=== PATIENT | female | born 1965 | race Caucasian/White ===

== ENCOUNTER 2016-10-18 08:25 | Emergency (ER) | payer MEDICAID ==
[~2016-10-18] VITALS: Ht 157.5 cm; Wt 58.7 kg
[~2016-10-18 08:25] MED LIST: INSU100V12 SQ; LEVO500T63 PO; METF10002 PO
[2016-10-18 08:27] VITALS: Ht 157.5 cm; Wt 58.7 kg
--- OUTSIDE RECORDS SUMMARY | 2016-10-18 08:29 | XMS REPORT ---
Author Author Chantel Graham [facility] eClinicalWorks Address Unknown Phone Unavailable Care Team Providers Care Account Information Clerk Name Role Phone Chantel Graham Unavailable Allergies No Known Allergies Problems Problem Type Condition ICD-9 Code Onset Dates Condition Status Problem Diabetes Mellitus Type 2, not stated as uncontrolled 250.00 Active Problem Diabetes mellitus without mention of complication, type II or unspecified type, uncontrolled 250.02 Active Medications Medication Code System Code Instructions Start Date End Date Status Dosage Lovastatin [facility] [address]-77 20 MG Orally Once a day Sep 11, 2014 1 tablet with a meal Results No Known Results Summary Purpose eClinicalWorks Submission
--- OUTSIDE RECORDS SUMMARY | 2016-10-18 08:29 | XMS REPORT | Continuity of Care Document ---
Author Author [facility] Organization [facility] Address Unknown Phone Unavailable Support Name Relationship Address Phone NOVEMBER, ANGEL Newell DO Caregiver [address] [facility] [place] [address] Unavailable HAYDEN PIÑA DO Caregiver [address] [place] [address] Unavailable ANDRESKAT CHRISTENSEN Next Of Kin Unknown [phone] Insurance Providers Guarantor Nai Ibanez Address [address] [place] [address] Email DENIED/NO TO PT PORT Payer Self Pay Subscriber's Name AndresNai christensen Relationship 18 Self Advance Directives Directive Response Recorded Date/Time Advanced Directives Type None 02/04/16 8:30pm Chief Complaint and Reason for Visit Chief Complaint Flank Pain Reason for Visit Bilateral flank pain Problems Past Problems Medical Problem Onset Date Bilateral flank pain Unknown Medications Current Home Medications Medication Dose Units Route Directions Days Qty Instructions Start Date Insulin Detemir (Levemir) 100 Unit/Ml Inj 20 Unit Sub-Q Bedtime 02/04/16 Levofloxacin (Levaquin) Unknown Strength Tablet 1 Tab Oral Daily 02/04/16 Metformin Hcl 1,000 Mg Tablet 1,000 Mg Oral Twice A Day 02/04/16 Social History Social History Problem Response Recorded Date/Time Onset Date Status Hx Alcohol Use No 02/04/2016 9:27pm Not Applicable Not Applicable Query Response Start Date Stop Date Smoking Status Never smoker Hospital Discharge Instructions No hospital discharge instructions. Plan of Care Discharge Date 02/04/16 11:11pm Disposition 01 DISCHARGED HOME, SELF-CARE Condition at Discharge Improved Instructions/Education Provided DI for Flank Pain Prescriptions See Medication Section Referrals HAYDEN PIÑA DO Address: [address] [place] [phone] Additional Instructions/Education Your labs were normal except for elevated blood sugar 324 and 3+ sugar in your urine. Renal CT had not acute findings. Complete course of Levaquin. Stay well hydrated, drink 2 quarts of water daily. May take Aleve as needed for pain. Follow with Dr. Piña as needed. Avoid any activity that makes pain worse. Care Plan and Goals Physician Care Plan Problem: Bilateral flank pain Goal: Follow up with primary care provider Instructions: Take medications and follow care plan as discussed/written Functional Status No functional status results. Allergies, Adverse Reactions, Alerts No known allergies. Immunizations Query Response on File Recorded Date/Time Influenza Vaccine Hx NONE 02/04/16 9:27pm Vital Signs Acute Vital Signs Vital Response Date/Time Temperature (Fahrenheit) 98.7 deg F (96.8 - 99.1) 02/04/2016 8:30pm Temperature (Calculated Celsius) 37.69453 degrees C (36.0 - 37.3) 02/04/2016 8:30pm Pulse Rate (adult) 79 bpm (60 - 100) 02/04/2016 11:11pm Respiratory Rate 18 breaths/min (10 - 20) 02/04/2016 11:11pm O2 Sat by Pulse Oximetry 97 % (90 - 100) 02/04/2016 11:11pm Blood Pressure 142/67 mm Hg 02/04/2016 11:11pm Height (Feet) 5 feet 02/04/2016 8:30pm Height (Inches) 0 inches 02/04/2016 8:30pm Weight (Kilograms) 62.200 kg 02/04/2016 8:30pm Body Mass Index (BMI) 26.0 02/04/2016 8:30pm Results Laboratory Results Test Name Result Units Flags Reference Collection Date/Time Result Date/ Time Comments White Blood Count 7.9 T/MM3 4.5-11.0 02/04/2016 9:26pm 02/04/2016 9: 31pm Red Blood Count 5.20 M/MM3 4.00-5.20 02/04/2016 9:pm 02/04/2016 9: 31pm Hemoglobin 13.8 GM/DL 12-16 02/04/2016 9:pm 02/04/2016 9:31pm Hematocrit 42.1 % 36-46 02/04/2016 9:pm 02/04/2016 9:31pm Mean Corpuscular Volume 81.0 UM3 80-100 02/04/2016 9:pm 02/04/2016 9: 31pm Mean Corpuscular Hemoglobin 26.5 UUG 26-34 02/04/2016 9:2015 9:31pm Mean Corpuscular Hemoglobin Concent 32.8 GM/DL 31-37 02/04/2016 9:02/04/2016 9:31pm RDW Standard Deviation 41.4 FL 36.9-50.2 02/04/2016 9:02/04/2016 9 :31pm Platelet Count 191 T/MM3 130-400 02/04/2016 9:02/04/2016 9:31pm Mean Platelet Volume 10.7 UM3 9.4-12.4 02/04/2016 9:02/04/2016 9: 31pm Neutrophils (%) (Auto) 56.1 % 33-66 02/04/2016 9:02/04/2016 9: 31pm Lymphocytes (%) (Auto) 36.9 % 23-45 02/04/2016 9:02/04/2016 9: 31pm Monocytes (%) (Auto) 4.8 % 0-9.0 02/04/2016 9:02/04/2016 9:31pm Eosinophils (%) (Auto) 1.6 % 0-4 02/04/2016 9:02/04/2016 9:31pm Basophils (%) (Auto) 0.5 % 0-2 02/04/2016 9:02/04/2016 9:31pm Immature Granulocyte % (Auto) 0.1 % 0.0-0.5 02/04/2016 9:2015 9:31pm Absolute Neutrophils (auto) 4.4 T/MM3 1.8-7.7 02/04/2016 9:2015 9:31pm Absolute Lymphocytes (auto) 2.9 T/MM3 1-4.8 02/04/2016 9:2015 9:31pm Absolute Monocytes (auto) 0.4 T/MM3 0-0.8 02/04/2016 9:02/04/2016 9:31pm Absolute Eosinophils (auto) 0.1 T/MM3 0-0.5 02/04/2016 9:2015 9:31pm Absolute Basophils (auto) 0.0 T/MM3 0-0.2 02/04/2016 9:02/04/2016 9:31pm Absolute Immature Granulocyte (auto 0.01 T/MM3 0.00-0.03 02/04/2016 9: 02/04/2016 9:31pm Icterus Index < 2 0-7 02/04/2016 9:02/04/2016 9:40pm Chemistry Specimen Hemolysis < 15 0-25 02/04/2016 9:02/04/2016 9 :40pm 0-25: Specimen Exhibited No Hemolysis. Turbidity < 20 0-20 02/04/2016 9:02/04/2016 9:40pm Sodium Level 141 MEQ/L 134-144 02/04/2016 9:02/04/2016 9:40pm Potassium Level 4.0 MEQ/L 3.6-5 02/04/2016 9:02/04/2016 9:40pm Chloride Level 99 MEQ/L 98-107 02/04/2016 9:02/04/2016 9:40pm Carbon Dioxide Level 27 MEQ/L 22-30 02/04/2016 9:02/04/2016 9: 40pm Anion Gap 15 MEQ/L 5-15 02/04/2016 9:02/04/2016 9:40pm Blood Urea Nitrogen 19.0 MG/DL H 7-17 02/04/2016 9:02/04/2016 9: 40pm Creatinine 0.5 MG/DL L 0.7-1.2 02/04/2016 9:02/04/2016 9:40pm BUN/Creatinine Ratio 38 RATIO H 6-02/04/2016 9:02/04/2016 9: 40pm Glomerular Filtration Rate Calc 130 02/04/2016 9:02/04/2016 9: 40pm Glucose Level 324 MG/DL H 65-110 02/04/2016 9:02/04/2016 9:40pm Calculated Osmolality 286 MOSM/KG H 261-280 02/04/2016 9:2015 9:40pm Calcium Level 9.5 MG/DL 8.4-10.2 02/04/2016 9:02/04/2016 9:40pm Total Bilirubin 0.70 MG/DL 0.20-1.30 02/04/2016 9:02/04/2016 9: 40pm Alkaline Phosphatase 88 U/L 38-126 02/04/2016 9:pm 02/04/2016 9:40pm Total Protein 7.6 G/DL 6.3-8.2 02/04/2016 9:26pm 02/04/2016 9:40pm Albumin 4.0 G/DL 3.5-5.0 02/04/2016 9:26pm 02/04/2016 9:40pm Globulin 3.6 G/DL 2.4-3.6 02/04/2016 9:pm 02/04/2016 9:40pm Albumin/Globulin Ratio 1.1 RATIO 1.1-2.2 02/04/2016 9:26pm 02/04/2016 9 :40pm Aspartate Amino Transf (AST/SGOT) 21 U/L 14-36 02/04/2016 9:26pm 2015 9:40pm Alanine Aminotransferase (ALT/SGPT) 11 U/L 9-52 02/04/2016 9:26pm 02/03 9:40pm Urine Collection Type VOIDED-NOT CC-MIDSTR 02/04/2016 9:00pm 2015 9:04pm Urine Color YELLOW YELLOW 02/04/2016 9:00pm 02/04/2016 9:04pm Urine Turbidity CLEAR CLEAR 02/04/2016 9:00pm 02/04/2016 9:04pm Urine Specific [place] 1.020 1.015-1.025 02/04/2016 9:00pm 2015 9:04pm Urine pH 5.0 5.0-8.0 02/04/2016 9:00pm 02/04/2016 9:04pm Urine Leukocyte Esterase NEGATIVE NEGATIVE 02/04/2016 9:00pm 2015 9:04pm Urine Nitrite NEGATIVE NEGATIVE 02/04/2016 9:00pm 02/04/2016 9:04pm Urine Protein NEGATIVE NEGATIVE 02/04/2016 9:00pm 02/04/2016 9:04pm Urine Glucose (UA) 3+ A NEGATIVE 02/04/2016 9:00pm 02/04/2016 9:04pm Urine Ketones NEGATIVE NEGATIVE 02/04/2016 9:00pm 02/04/2016 9:04pm Urine Urobilinogen 0.2 EU/DL NORMAL 02/04/2016 9:00pm 02/04/2016 9: 04pm Urine Bilirubin NEGATIVE NEGATIVE 02/04/2016 9:00pm 02/04/2016 9: 04pm Urine Blood NEGATIVE NEGATIVE 02/04/2016 9:00pm 02/04/2016 9:04pm Urinalysis Comment MICROSCOPIC NOT IND. 02/04/2016 9:00pm 2015 9:04pm Procedures No known history of procedures. Encounters Encounter Location Arrival/Admit Date Discharge/Depart Date Attending Provider Departed Emergency Room [facility] 02/04/16 8:22pm 02/04/16 11: 11pm ANGEL ROJAS DO Recent Diagnosis
--- OUTSIDE RECORDS SUMMARY | 2016-10-18 08:29 | XMS REPORT ---
Author Author Dylon Donato Organization eClinicalWorks Address Unknown Phone Unavailable Care Team Providers Care Blueprinting And Photocopy Supervisor Name Role Phone Dylon Donato CP Unavailable Allergies No Known Allergies Problems Problem Type Condition Code Onset Dates Condition Status Problem Hyperlipidemia, unspecified E78.5 Active Problem Essential (primary) hypertension I10 Active Problem Type 2 diabetes mellitus with hyperglycemia E11.65 Active Problem Diabetes Mellitus Type 2, not stated as uncontrolled 250.00 Active Problem Type 2 diabetes mellitus with diabetic neuropathy, unspecified E11.40 Active Problem Diabetes mellitus without mention of complication, type II or unspecified type, uncontrolled 250.02 Active Medications No Known Medications Results No Known Results Summary Purpose eClinicalWorks Submission
--- OUTSIDE RECORDS SUMMARY | 2016-10-18 08:29 | XMS REPORT ---
Author Author Chantel Graham [facility] eClinicalWorks Address Unknown Phone Unavailable Care Team Providers Care Garage Door Service Technician Name Role Phone Chantel Graham Unavailable Allergies No Known Allergies Problems Problem Type Condition Code Onset Dates Condition Status Problem Diabetes Mellitus Type 2, not stated as uncontrolled 250.00 Active Problem Diabetes mellitus without mention of complication, type II or unspecified type, uncontrolled 250.02 Active Medications No Known Medications Results No Known Results Summary Purpose eClinicalWorks Submission
--- OUTSIDE RECORDS SUMMARY | 2016-10-18 08:29 | XMS REPORT ---
Author Author Dylon Donato Organization eClinicalWorks Address Unknown Phone Unavailable Care Team Providers Care Print Binding And Finishing Worker Name Role Phone Dylon Donato CP Unavailable Allergies No Known Allergies Problems Problem Type Condition Code Onset Dates Condition Status Problem Diabetes Mellitus Type 2, not stated as uncontrolled 250.00 Active Assessment Type 2 diabetes mellitus with hyperglycemia E11.65 Active Problem Diabetes mellitus without mention of complication, type II or unspecified type, uncontrolled 250.02 Active Assessment Benign essential hypertension I10 Active Assessment Hyperlipidemia, unspecified E78.5 Active Medications Medication Code System Code Instructions Start Date End Date Status Dosage Lovastatin [facility] [address]-48 20 MG Orally Once a day Sep 11, 2014 1 tablet with a meal Levemir FlexTouch [facility] [address]-06 100 UNIT/ML Subcutaneous at HS Mar 08, 2014 30 units Aspir-81 [facility] [address]-17 81 MG Orally Once a day 1 tablet Humalog KwikPen [facility] [address]-96 100 UNIT/ML Subcutaneous tid with meals Mar 08, 2014 12 units Procedures Procedure Coding System Code Date COMPLETE CBC W/AUTO DIFF WBC CPT-4 00925 Apr 13, 2016 HEMOGLOBIN A1C, IN HOUSE CPT-4 12447 Apr 13, 2016 LIPID PANEL CPT-4 40764 Apr 13, 2016 IH MicroAlb/Creat Ratio, Urine CPT-4 21415 Apr 13, 2016 COMPREHENSIVE METABOLIC PANEL CPT-4 14372 Apr 13, 2016 IH MicroAlb/Creat Ratio, Urine CPT-4 78043 Apr 13, 2016 Results Name Result Date Reference Range Unit Abnormality Flag In House HB A1c ----Hemoglobin A1c 11.3 20160413 In House Microalb/Creat Ratio, Urine ----Microalbum.,U,Random 32.6 [id number] ----Microalb/Creat Ratio 77.3 [id number] ----Creatinine, Urine 42.2 [id number] Summary Purpose eClinicalWorks Submission
--- OUTSIDE RECORDS SUMMARY | 2016-10-18 08:29 | XMS REPORT ---
Author Author Chantel Graham [facility] eClinicalWorks Address Unknown Phone Unavailable Care Team Providers Care Crime Victim Specialist Name Role Phone Chantel Graham Unavailable Allergies No Known Allergies Problems Problem Type Condition ICD-9 Code Onset Dates Condition Status Problem Diabetes Mellitus Type 2, not stated as uncontrolled 250.00 Active Assessment Diabetes mellitus without mention of complication, type II or unspecified type, uncontrolled 250.02 Active Problem Diabetes mellitus without mention of complication, type II or unspecified type, uncontrolled 250.02 Active Assessment Screening for lipoid disorders V77.91 Active Medications Medication Code System Code Instructions Start Date End Date Status Dosage Aspir-81 [facility] [address]-65 81 MG Orally Once a day 1 tablet Diflucan [facility] [address]-69 150 MG Orally x1 today and repeat wednesday2013 1 tablet Levemir FlexTouch [facility] [address]-40 100 UNIT/ML Subcutaneous at HS Mar 08, 2014 20 units Humalog KwikPen [facility] [address]-18 100 UNIT/ML Subcutaneous tid with meals Mar 08, 2014 7 units Procedures Procedure Coding System Code Date LIPID PANEL CPT-4 94794 Aug 30, 2014 URINALYSIS, IN HOUSE CPT-4 20388 Aug 30, 2014 HEMOGLOBIN A1C, IN HOUSE CPT-4 71053 Aug 30, 2014 Vital Signs Date/Time: Mar 19, 2014 Height 58.75 inches Weight 150.8 lbs Temperature 97.5 F Blood Pressure Diastolic 64 mm Hg Blood Pressure Systolic 118 mm Hg Cardiac Monitoring Heart Rate 88 Beats per Minute BMI 30.71 Index Respiratory Rate 16 per Minute Results No Known Results Summary Purpose eClinicalWorks Submission
--- OUTSIDE RECORDS SUMMARY | 2016-10-18 08:30 | XMS REPORT ---
Author Author Dylon Donato Organization eClinicalWorks Address Unknown Phone Unavailable Care Team Providers Care Surgery Nurse Name Role Phone Dylon Donato CP Unavailable Allergies, Adverse Reactions, Alerts Substance Reaction Event Type N.K.D.A. Info Not Available Non Drug Allergy Problems Problem Type Condition Code Onset Dates Condition Status Assessment Low back pain M54.5 Active Assessment Hyperlipidemia, unspecified E78.5 Active Assessment Essential (primary) hypertension I10 Active Problem Hyperlipidemia, unspecified E78.5 Active Problem Essential (primary) hypertension I10 Active Problem Type 2 diabetes mellitus with hyperglycemia E11.65 Active Problem Diabetes Mellitus Type 2, not stated as uncontrolled 250.00 Active Assessment Type 2 diabetes mellitus with hyperglycemia E11.65 Active Problem Type 2 diabetes mellitus with diabetic neuropathy, unspecified E11.40 Active Problem Diabetes mellitus without mention of complication, type II or unspecified type, uncontrolled 250.02 Active Assessment Proteinuria, unspecified R80.9 Active Assessment Type 2 diabetes mellitus with diabetic neuropathy, unspecified E11.40 Active Assessment Pain in right leg M79.604 Active Medications Medication Code System Code Instructions Start Date End Date Status Dosage pravastatin [facility] [address]-42 40 mg oral at bedtime Apr 22, 2016 one tablet Aspir-81 [facility] [address]-20 81 MG Orally Once a day 1 tablet Januvia [facility] [address]-39 100 MG Orally Once a day Apr 22, 2016 1 tablet Lisinopril [facility] [address]-72 2.5 MG Orally Once a day Apr 22, 2016 1 tablet Levemir FlexTouch [facility] [address]-25 100 UNIT/ML Subcutaneous at HS Mar 08, 2014 20 units Triamcinolone Acetonide [facility] [address]-54 0.5 % Externally Twice a day 1 application to affected area Metformin HCl [facility] [address]-70 1000 MG Orally Twice a day 1 tablet with meals Gabapentin [facility] [address]-58 100 MG Orally every 12 hours Sept 28, 2016 every 12 hours Procedures Procedure Coding System Code Date OFFICE VISIT, EST-LOW COMPLEXITY (15 MIN.) CPT-4 12309 Apr 22, 2016 Vital Signs Date/Time: Apr 22, 2016 Temperature 98.4 F Height 58.75 in Weight 130.5 lbs Blood Pressure Diastolic 82 mm Hg Blood Pressure Systolic 118 mm Hg Cardiac Monitoring Heart Rate 100 /min BMI 26.58 Index Oximetry 98 % Respiratory Rate 16 /min Results No Known Results Summary Purpose eClinicalWorks Submission
--- OUTSIDE RECORDS SUMMARY | 2016-10-18 08:30 | XMS REPORT ---
Author Dylon Smith Organization eClinicalWorks Address Unknown Phone Unavailable Care Team Providers Care Cashier Name Role Phone Dylon Donato CP Unavailable Allergies, Adverse Reactions, Alerts Substance Reaction Event Type N.K.D.A. Info Not Available Non Drug Allergy Problems Problem Type Condition Code Onset Dates Condition Status Assessment Lumbago with sciatica, right side M54.41 Active Problem Diabetes Mellitus Type 2, not stated as uncontrolled 250.00 Active Assessment Lumbago with sciatica, left side M54.42 Active Problem Lumbago with sciatica, right side M54.41 Active Problem Type 2 diabetes mellitus with hyperglycemia E11.65 Active Problem Lumbago with sciatica, left side M54.42 Active Problem Type 2 diabetes mellitus with diabetic neuropathy, unspecified E11.40 Active Problem Diabetes mellitus without mention of complication, type II or unspecified type, uncontrolled 250.02 Active Problem Hyperlipidemia, unspecified E78.5 Active Problem Essential (primary) hypertension I10 Active Assessment Myalgia M79.1 Active Assessment Iron deficiency E61.1 Active Assessment Type 2 diabetes mellitus with hyperglycemia E11.65 Active Medications Medication Code System Code Instructions Start Date End Date Status Dosage pravastatin [facility] [address]-19 40 mg oral at bedtime Apr 22, 2016 one tablet Lisinopril [facility] [address]-39 2.5 MG Orally Once a day Apr 22, 2016 1 tablet Gabapentin [facility] [address]-51 100 MG Orally every 12 hours Apr 22, 2016 every 12 hours Mobic [facility] [address]-41 7.5 MG Orally Once a day May 13, 2016 Aug 11, 2016 1 tablet Ferrous Sulfate [facility] [address]-90 325 (65 Fe) MG Orally every 12 hours with meals May 13, 2016 1 tablet Vitamin C [facility] [address]-61 500 MG Orally every 12 hours May 13, 2016 1 tablet Januvia [facility] [address]-35 100 MG Orally Once a day Apr 22, 2016 1 tablet Levemir FlexTouch [facility] [address]-55 100 UNIT/ML Subcutaneous at HS Mar 08, 2014 20 units Metformin HCl [facility] [address]-66 1000 MG Orally Twice a day 1 tablet with meals Triamcinolone Acetonide [facility] [address]-52 0.5 % Externally Twice a day 1 application to affected area Aspir-81 [facility] [address]-92 81 MG Orally Once a day 1 tablet Colace [facility] [address]-49 100 MG Orally Once a day May 13, 2016 Aug 11, 2016 1 capsule as needed for constipation Procedures Procedure Coding System Code Date OFFICE VISIT, EST-LOW COMPLEXITY (15 MIN.) CPT-4 49500 May 13, 2016 Vital Signs Date/Time: May 13, 2016 Temperature 97.9 F Height 58.75 in Weight 130.5 lbs Blood Pressure Diastolic 82 mm Hg Blood Pressure Systolic 120 mm Hg Cardiac Monitoring Heart Rate 100 /min BMI 26.58 Index Oximetry 97 % Respiratory Rate 16 /min Results No Known Results Summary Purpose eClinicalWorks Submission
--- OUTSIDE RECORDS SUMMARY | 2016-10-18 08:30 | XMS REPORT ---
Author Author Chantel Graham [facility] eClinicalWorks Address Unknown Phone Unavailable Care Team Providers Care Assembler Piano Name Role Phone Chantel Graham Unavailable Allergies [...] Instructions Start Date End Date Status Dosage Januvia [facility] [address]-43 100 MG Orally Once a day Apr 22, 2016 1 tablet Levemir FlexTouch [facility] [address]-82 100 UNIT/ML Subcutaneous at Mar 08, 2014 20 units Results No Known Results Summary Purpose eClinicalWorks Submission
--- OUTSIDE RECORDS SUMMARY | 2016-10-18 08:30 | XMS REPORT ---
Author Author Dylon Donato Organization eClinicalWorks Address Unknown Phone Unavailable Care Team Providers Care Production Assistant Name Role Phone Dylon Donato CP Unavailable Allergies No Known Allergies Problems Problem Type Condition Code Onset Dates Condition Status Problem Diabetes Mellitus Type 2, not stated as uncontrolled 250.00 Active Problem Lumbago with sciatica, right side M54.41 Active Problem Type 2 diabetes mellitus with hyperglycemia E11.65 Active Problem Lumbago with sciatica, left side M54.42 Active Problem Type 2 diabetes mellitus with diabetic neuropathy, unspecified E11.40 Active Problem Diabetes mellitus without mention of complication, type II or unspecified type, uncontrolled 250.02 Active Problem Hyperlipidemia, unspecified E78.5 Active Problem Essential (primary) hypertension I10 Active Medications No Known Medications Results No Known Results Summary Purpose eClinicalWorks Submission
--- OUTSIDE RECORDS SUMMARY | 2016-10-18 08:30 | XMS REPORT ---
Author Author Dylon Donato Organization [employer] Address Unknown Phone Unavailable Care Team Providers Care English Drawer Name Role Phone Dylon Donato CP Unavailable [...]
--- OUTSIDE RECORDS SUMMARY | 2016-10-18 08:30 | XMS REPORT ---
Author Author Dylon Donato Organization [employer] Address Unknown Phone Unavailable Care Team Providers Care Jack Prizer Name Role Phone Dylon Donato CP Unavailable [...] Problem Essential (primary) hypertension I10 Active Medications Medication Code System Code Instructions Start Date End Date Status Dosage BD Insulin Syringe MicroFine [facility] 8290-235127 28G X 1/2" 1 ML SQ AT HS Jun 30, 2016 as directed Results No Known Results Summary Purpose eClinicalWorks Submission
--- OUTSIDE RECORDS SUMMARY | 2016-10-18 08:30 | XMS REPORT ---
Author Author Dylon Donato Organization [employer] Address Unknown Phone Unavailable Care Team Providers Care Manager Paper Name Role Phone Dylon Donato CP Unavailable [...]
[2016-10-18] MEDS ORDERED: ONDANSETRON 4mg/2ml INJECTION IV ONE (09:15)
[2016-10-18] MEDS ORDERED: NORMAL SALINE 1,000 ML IV ONE (09:15)
[2016-10-18] MEDS ORDERED: PREG150C PO (09:28)
[2016-10-18] MEDS ORDERED: DOCU-273 PO (09:28)
[2016-10-18] MEDS ORDERED: SITA100T12 PO (09:28)
[2016-10-18] MEDS ORDERED: TRAM50TA4 PO (09:29)
--- NOTE | 2016-10-18 09:30 | NUR ---
IV IVL STARTED AND BLOOD COLLECTED FOR LAB
[2016-10-18 09:37] LABS: HCT - HEMATOCRIT 41.1 % (36-46); HGB - HEMOGLOBIN 13.7 GM/DL (12-16); MEAN CORPUSCULAR HGB 27.1 UUG (26-34); MEAN CORPUSCULAR HGB CONC(MCHC 33.3 GM/DL (31-37); MEAN CORPUSCULAR VOLUME 81.4 UM3 (80-100); MEAN PLATELET VOLUME 10.3 UM3 (9.4-12.4); RED BLOOD COUNT 5.05 M/MM3 (4.00-5.20); WBC - WHITE BLOOD COUNT 13.9 T/MM3 (4.5-11.0)
[2016-10-18 09:45] LABS: ALBUMIN 3.8 G/DL (3.5-5.0); ALBUMIN/GLOBULIN RATIO 1.1 RATIO (1.1-2.2); ALKALINE PHOSPHATASE 83 U/L (38-126); ALT (SGPT) 21 U/L (9-52); ANION GAP 15 MEQ/L (5-15); AST (SGOT) 23 U/L (14-36); BUN/CREATININE RATIO 28 RATIO (6-26); CALCIUM 8.6 MG/DL (8.4-10.2); CHLORIDE 104 MEQ/L (98-107); CO2 - CARBON DIOXIDE 20 MEQ/L (22-30); CREATININE 0.8 MG/DL (0.7-1.2); GLOMERULAR FILTRATION RATE 75; GLUCOSE 239 MG/DL (65-110); LIPASE 61 U/L (23-300); POTASSIUM 3.6 MEQ/L (3.6-5); SODIUM 139 MEQ/L (134-144); TOTAL PROTEIN 7.4 G/DL (6.3-8.2)
[2016-10-18] MEDS ORDERED: NORMAL SALINE 100 ML ONE (09:54)
[2016-10-18] MEDS ORDERED: IOHEXOL 300 MG/ML 100ml INJECTION ONE (09:54)
--- NOTE | 2016-10-18 10:00 | NUR ---
RADIOLOGY PT TO RADIOLOGY PER CART
--- NOTE | 2016-10-18 10:23 | NUR ---
RADIOLOGY PT FROM RADIOLOGY PER CART
[2016-10-18 10:25] LABS: BAND NEUTROPHILS # 0.7 T/MM3; LYMPHOCYTES # (MANUAL) 3.5 T/MM3 (1-4.8); MONOCYTES # (MANUAL) 0.4 T/MM3 (0-0.8); NEUTROPHILS #(MANUAL)-ABSOLUTE 8.3 T/MM3 (1.8-7.7); TOTAL CELLS COUNTED 100 %
--- NOTE | 2016-10-18 11:42 | NUR ---
DR DR GARCIA IN ROOM.
--- NOTE | 2016-10-18 11:46 | NUR ---
STATUS PT AMBULATORY TO TOILET IN ROOM. PT'S GAIT STEADY. PT STATES "I FEEL MUCH BETTER." PT DENIES DIZZINESS.
[2016-10-18] MEDS ORDERED: ONDA4TAB7 PO (12:07)
--- NOTE | 2016-10-18 12:07 | ERPDOC ---
Departure Disposition Decision Date: Oct 18, 2016 Disposition Decision Time: 12:06 Disposition: 01 DISCHARGED HOME, SELF-CARE Impression Impression Impression: Primary Impression: Acute gastroenteritis Severity: Mild Condition: Improved Seen By: Physician only Referrals: RANDY KLEIN DO (Family) 2 Days Patient Instructions: Gastroenteritis (ED) Problems/Meds/Labs Reviewed?: Yes Medications reviewed and manag: Yes Follow up care ordered?: Yes Mental Status: Alert, Oriented Scripts Ondansetron (Zofran Odt) 4 Mg Tab.rapdis 4 MG PO Q4HR Y for NAUSEA &/OR VOMITING for 3 Days, #18 TAB 0 Refills Prov: TREV GARCIA 10/18/16 HPI - Abdominal Pain General Chief Complaint: Nausea,Vomiting,Diarrhea Stated Complaint: LOOSE STOOLS,VOMITING ( 6 DAYS NOW) Time Seen by Provider: 08:35 Source: patient History/Exam Limitations: no limitations HPI - Abdominal Pain Initial Comments 50-year-old female presents to the emergency department with a chief complaint of vomiting and diarrhea which is been ongoing for the past 6 days. Patient noted onset of symptoms when she was at home immediately after returning from [place]. Patient states that while in [place] she started to develop some abdominal cramping and was given ampicillin injections by a physician in [place] without further evaluation or treatment. Patient presents to the emergency department today for evaluation. Patient denies any pain or discomfort. She notes generalized abdominal cramping. No radiation. Cramping is mild. She does not note anything that makes her symptoms any better or any worse. Patient was at home when her symptoms began. Symptoms have been persistent in nature since onset. Symptoms were gradual. No other complaints or associated symptoms. There is no blood in emesis or stool. Occurred At: home Onset: Gradual Allergies: Coded Allergies: No Known Allergies (Unverified , 02/04/16) Past History Past Medical History Metabolic: diabetes Female: UTI, kidney stones Surgical History Reproductive/: Family History Family History: Negative Family PMH: FOUND: other Social History Smoking Status: Never smoker Substance Use Type: does not use Alcohol Intake: none Review of Systems Constitutional Constitutional: DENIES: chills, fever Eyes General: DENIES: erythema, exudate Lids/Accessories: DENIES: erythema, swelling Vision: DENIES: acuity, blurring ENMT Ears: DENIES: drainage, erythema Hearing: DENIES: hearing loss Balance: DENIES: ataxia, falling to one side Sinuses: DENIES: congestion, pain Nose: DENIES: nosebleeds, pain Mouth/Throat: DENIES: painful swallowing, sore throat Teeth: DENIES: pain Jaw: DENIES: pain Cardiovascular Cardiac: DENIES: chest pain, dyspnea on exertion Rhythm/Rate: DENIES: irregular beat, palpitations Vascular: DENIES: pedal edema, unilateral swelling Pulmonary Respiratory: DENIES: cough, dyspnea, pleuritic chest pain, sputum GI Upper Abdomen: nausea, vomiting, DENIES: pain Lower Abdomen: diarrhea, DENIES: pain General: DENIES: dysuria, pain Integumentary Skin: DENIES: itching, rash Neurological General: DENIES: headache, numbness, weakness Psychiatric Psychiatric: DENIES: emotional instability, suicidal ideation/attempt Endocrine Endocrine: DENIES: polydipsia, polyphagia Hematologic/Lymphatic Hematologic/Lymphatic: DENIES: frequent nosebleeds, lymphadenopathy Allergic/Immunological Allergic/Immunoligical: DENIES: allergic reactions, hives Physical Exam General General Nourishment: well nourished, well developed, appears stated age, no acute distress, adult General Body Habitus: well groomed Vitals and Pain First Documented Vital Signs Date Time Temp Pulse Resp B/P Pulse Ox O2 Delivery O2 Flow Rate FiO2 10/18/16 08:27 97.8 117 16 109/67 95 Room Air Weight: Kilograms: 58.700 Height (feet): 5 Height (inches): 2.00 Triage Pain Scale: RN VS reviewed by Provider: Yes Normal Exams: Head: Normocephalic w/o trauma Eyes: Pupils are PERRLA w/ EOMI, No scleral icterus, irritation, or foreign bodies noted ENMT: No facial trauma, nasal exudates, pharyngeal erythema, or exudates are noted Dental: No fractured, loose, or missing teeth noted Neck: Full range of motion, without adenopathy, JVD, bruits or thyromegaly Chest/Resp: Clear all lea, with good airflow, and symmetry bilaterally CV: Regular rate and rhythm, without murmur or gallop, Pulses 2+ all extremities, capillary refill, <2 seconds all ext., no pedal edema noted Abdomen: Bowel sounds positive, soft, non-tender, non-distended, no hepatosplenomegaly, masses or bruits noted Lymphatic: No lymphadenopathy, or lymphedema noted Musculoskeletal: No tenderness, or deformity noted, good range of motion, all extremities Integumentary: No rashes, hives, or bruising noted, hair and nails, without abnormality Neurologic: Patient is alert, and oriented, cranial nerves, motor/sensory/ cerebellar, exams w/o gross deficits, to observation Psychiatric: Patient exhibits, appropriate attention, emotion and affect Differential Diagnoses Considering: Dehydration, Food Poisoning, Gastroenteritis, Influenza, Viral Syndrome Progress Results/Orders Orders Procedure Category Date Status Time Cbc W/Auto LAB 10/18/16 Complete Diff-Reflex Manual Cmp - Comprehensive LAB 10/18/16 Complete Metabolic Lipase LAB 10/18/16 Complete Ua, Dip Wreflex LAB 10/18/16 Complete [employer] Warm Up 09:07 LAB 10/18/16 Complete Qualitative, Urine 09:07 Iv Lock (Ed Only) EDM 10/18/16 Transmitted 09:07 Ondansetron Inj PHA 10/18/16 Complete (Zofran) 09:15 Normal Saline (Normal PHA 10/18/16 Complete Saline Iv) 09:15 Ct Abd/Pelvis CT 10/18/16 Taken W/Contrast Only 09:46 Iohexol (Omnipaque) PHA 10/18/16 Complete 09:54 Normal Saline (Ns) PHA 10/18/16 Complete 09:54 Lab Results Laboratory Tests Test 10/18/16 09:31 10/18/16 12:05 White Blood Count 13.9T/MM3 Red Blood Count 5.05M/MM3 Hemoglobin 13.7GM/DL Hematocrit 41.1% Mean Corpuscular Volume 81.4UM3 Mean Corpuscular Hemoglobin 27.1UUG Mean Corpuscular Hemoglobin Concent 33.3GM/DL RDW Standard Deviation 41.0FL Platelet Count 216T/MM3 Mean Platelet Volume 10.3UM3 Immature Granulocyte % (Auto) % Neutrophils (%) (Auto) % Lymphocytes (%) (Auto) % Monocytes (%) (Auto) % Eosinophils (%) (Auto) % Basophils (%) (Auto) % Absolute Immature Granulocyte (auto T/MM3 Absolute Neutrophils (auto) T/MM3 Absolute Lymphocytes (auto) T/MM3 Absolute Monocytes (auto) T/MM3 Absolute Eosinophils (auto) T/MM3 Absolute Basophils (auto) T/MM3 Neutrophils % (Manual) 60.0% Band Neutrophils % 5.0% Lymphocytes % (Manual) 25.0% Monocytes % (Manual) 3.0% Eosinophils % (Manual) 7.0% Absolute Neutrophils (Manual) 8.3T/MM3 Band Neutrophils # 0.7T/MM3 Lymphocytes # (Manual) 3.5T/MM3 Monocytes # (Manual) 0.4T/MM3 Eosinophils # (Manual) 1.0T/MM3 Red Cell Morphology Comment Normal Turbidity < 20 Sodium Level 139MEQ/L Potassium Level 3.6MEQ/L Chloride Level 104MEQ/L Carbon Dioxide Level 20MEQ/L Anion Gap 15MEQ/L Blood Urea Nitrogen 22.0MG/DL Creatinine 0.8MG/DL Glomerular Filtration Rate Calc 75 BUN/Creatinine Ratio 28RATIO Glucose Level 239MG/DL Calculated Osmolality 279MOSM/KG Calcium Level 8.6MG/DL Total Bilirubin 0.60MG/DL Icterus Index < 2 Aspartate Amino Transf (AST/SGOT) 23U/L Alanine Aminotransferase (ALT/SGPT) 21U/L Alkaline Phosphatase 83U/L Total Protein 7.4G/DL Albumin 3.8G/DL Globulin 3.6G/DL Albumin/Globulin Ratio 1.1RATIO Lipase 61U/L Chemistry Specimen Hemolysis 43 Urine Collection Type Cleancatch-midstream Urine Color Yellow Urine Turbidity Sl cloudy Urine pH 5.5 Urine Specific [place]cl[place] <=1.005 Urine Protein Trace Urine Glucose (UA) Trace Urine Ketones Negative Urine Blood Negative Urine Nitrite Negative Urine Bilirubin Negative Urine Urobilinogen 0.2EU/DL Urine Leukocyte Esterase Negative Urinalysis Comment Microscopic not ind. Urine Test Negative Medications Current ED Medications Ondansetron HCl 4 mg 4 mg O ONCE IV Last administered on 10/18/16 09:36; Start 10/18/16 at 09:15; Stop 10/18/16 at 09:16; Status DC Sodium Chloride (Normal Saline IV) 1,000 ml @ 999 mls/hr Q1H1M ONCE IV Last administered on 10/18/16 09:36; Start 10/18/16 at 09:15; Stop 10/18/16 at 10:15 ; Status DC Iohexol 1 bottle 1 bottle STK-MED ONCE .ROUTE ; Start 10/18/16 at 09:54; Stop at 09:55; Status DC Sodium Chloride (NS) 100 ml @ As Directed STK-MED ONCE .ROUTE ; Start 10/18/16 at 09:54; Stop 10/18/16 at 09:55; Status DC Progress Progress Labs/imaging were discussed in detail with the patient and questions are answered. Patient is given 1 L of normal saline intravenously. Patient is given antiemetic medications intravenously which improved her symptoms. It should be noted that the patient's blood pressures which were 80s systolic were taken with an inappropriately sized cuff and the patient was sleeping. Patient had her blood pressure cuff resized and was awake with the final taking of her last to blood pressures. Patient is discharged home in improved condition. She is to follow up as instructed. Patient is to return to the emergency Department if her condition worsens or changes in any manner. Patient is in agreement with the current plan of management. Patient is to follow up as instructed. Patient is provided with a prescription for Zofran. Patient is provided with a prescription for Cipro at her request as she is concerned that she may have contracted travelers diarrhea during her [place] trip. Patient did not have any loose stool in the emergency department. Patient is instructed to collect a stool sample and take it to her primary care physician for follow-up. She is discharged home in improved condition. She is in agreement with the current plan of management. She is to follow up as instructed. CT CT : CT: Abd/Pelvis IV contrast Interpretation: Normal, Reviewed Written Report TREV GARCIA DO Oct 18, 2016 12:07
[2016-10-18 12:09] LABS: BLOOD, URINE NEGATIVE (NEGATIVE); COLOR,URINE YELLOW (YELLOW); LEUKOCYTE ESTERASE ,URINE NEGATIVE (NEGATIVE); NITRITE,URINE NEGATIVE (NEGATIVE); UROBILINOGEN,URINE 0.2 EU/DL (NORMAL)
--- NOTE | 2016-10-18 12:16 | NUR ---
DR DR GARCIA AT BEDSIDE.
[2016-10-18 12:22] VITALS: BP 104/60; PULSE 98; RESP 16; TEMP 97.8; O2SAT 98
--- NOTE | 2016-10-18 12:32 | NUR ---
DEPART PT TAKEN TO PRIVATE VEHICLE DRIVEN BY VIA WC BY THIS RN. PT STEADY WITH TRANSFER INTO VEHICLE.
--- NOTE | 2016-10-19 07:52 | DI ---
Indication: ITS.REASON: n/v/d PROCEDURE: CT ABD/PELVIS W/CONTRAST ONLY: Encounter: Initial Comparison: None Technique: Axial CT images were performed through the abdomen and pelvis after the administration of intravenous contrast. Coronal and sagittal two-dimensional reformats. Automated Exposure Control and Iterative Reconstruction dose reducing techniques were utilized. Contrast: Omnipaque 300 100 mL Findings: The lung bases are clear. The upper abdominal solid viscera are unremarkable without morphologic abnormality or abnormal attenuation. Gallbladder normal. Kidneys enhance symmetrically. In terms of the bowel, there is no bowel wall thickening, associated inflammatory changes or mass. Appendix appears normal. No free air or free fluid identified. Visualized osseous elements unremarkable. Impression: No acute abdominal or pelvic inflammatory process. .
== END 2016-10-18 12:32 | disposition home or self-care (01) ==
LOC: ED 08:25
DX: K52.9 Noninfective gastroenteritis and colitis, unspecified (principal)
CPT/HCPCS: 74177; 80053; 81003; 81025; 83690; 85025; 96361; 96374; 99284; J2405; J7030; J7050; Q9967